=== PATIENT | male | born 1980 | race Caucasian/White ===

== ENCOUNTER 2021-05-17 12:26 | Emergency (ER) | payer OTHER ==
[2021-05-17 12:34] VITALS: BP 108/48; PULSE 59; TEMP 98.1; BMI 35.5
== END 2021-05-17 13:30 | disposition home or self-care (01) ==
LOC: JERFT 12:26
DX: M54.6 Pain in thoracic spine (principal)
CPT/HCPCS: 99281-25

== ENCOUNTER 2024-03-16 14:37 | Emergency (ER) | payer OTHER ==
[2024-03-16 14:50] VITALS: BP 121/74; PULSE 71; RESP 18; TEMP 98.4; BMI 28.5
[2024-03-16] MEDS ORDERED: DEXAMETHASONE SOD PHOSPHATE 10 MG/1 ML VIAL ONE (15:06)
[2024-03-16] MEDS: DEXAMETHASONE SOD PHOSPHATE 10 MG/1 ML VIAL IM ONE (15:13)
== END 2024-03-16 15:34 | disposition home or self-care (01) ==
LOC: JERFT 14:37
PROC: 3E023GC Introduction of Other Therapeutic Substance into Muscle, Percutaneous Approach (ICD-10-PCS; principal; 2024-03-16)
DX: L23.7 Allergic contact dermatitis due to plants, except food (principal)
CPT/HCPCS: 96372; 99284-25; J1100

== ENCOUNTER 2024-06-11 10:39 | Emergency (ER) | payer OTHER ==
[2024-06-11 10:48] VITALS: BP 119/80; PULSE 74; RESP 18; TEMP 97.7; BMI 29.8
[2024-06-11] MEDS ORDERED: KETOROLAC TROMETHAMINE 30 MG/1 ML VIAL ONE (11:15)
[2024-06-11] MEDS: KETOROLAC TROMETHAMINE 30 MG/1 ML VIAL IM ONE (11:28)
== END 2024-06-11 11:28 | disposition home or self-care (01) ==
LOC: JERFT 10:39
PROC: 3E0133Z Introduction of Anti-inflammatory into Subcutaneous Tissue, Percutaneous Approach (ICD-10-PCS; principal; 2024-06-11)
DX: M54.50 Low back pain, unspecified (principal)
CPT/HCPCS: 99284-25